=== PATIENT | female | born 1960 | race Native Hawaiian/Other Pacific Islander ===

== ENCOUNTER 2019-04-12 09:49 | Outpatient (CLI) | payer OTHER | END 2019-04-12 22:11 | disposition home or self-care (01) | LOC: RAD 09:49 | DX: R10.2 Pelvic and perineal pain (principal) ==

== ENCOUNTER 2021-07-19 12:49 | Outpatient (CLI) | payer OTHER | END 2021-07-19 18:59 | disposition home or self-care (01) | LOC: RAD 12:49 | PROVIDERS: ATTEND Internal Medicine | DX: R06.02 Shortness of breath (principal); R05.3 Chronic cough; Z13.820 Encounter for screening for osteoporosis; N95.8 Other specified menopausal and perimenopausal disorders ==